=== PATIENT | male | born 1965 | race Caucasian/White ===

== ENCOUNTER → 2020-07-30 16:43 | Outpatient (BNVA) | payer OTHER, SELFPAY | PROVIDERS: Visit Provider Nurse Practitioner | DX: Z20.828 Contact with and (suspected) exposure to other viral communicable diseases (principal) | CPT/HCPCS: 87635 ==

== ENCOUNTER 2020-08-08 16:47 | Emergency (ER) | payer OTHER, SELFPAY ==
[2020-08-08 17:00] VITALS: BP 125/83; PULSE 112; RESP 19; TEMP 36.8; O2SAT 95; BMI 37.5
--- NOTE | 2020-08-08 17:00 | XRR_ITS ---
PROCEDURE INFORMATION: Exam: XR Chest, 1 View Exam date and time: 08/08/2020 5:41 PM Age: 55 years old Clinical indication: Cough; Additional info: Dyspnea/cough TECHNIQUE: Imaging protocol: XR of the chest Views: 1 view. COMPARISON: No relevant prior studies available. FINDINGS: Lungs: The lung bases are incompletely imaged. Pleural space: No pneumothorax. Heart/Mediastinum: Cardiomediastinal contours are unremarkable. Bones/joints: Bones are unremarkable. XR/XR chest 1V portable [id number] IMPRESSION: No acute findings.
--- NOTE | 2020-08-08 17:02 | W.ED.COVID ---
Documented by User: Rudolph Neil DO 08/09/20 10:14 HPI - COVID General: Chief Complaint: COVID symptoms Stated Complaint: covid +, weakness, nausea Time Seen by Provider: 08/08/20 16:49 History of Present Illness: HPI Narrative: 55-year-old male comes in complaining of fatigue weakness he is at approximately 9 to 10 days since onset of symptoms. He did test positive for Covid. He comes in today complaining of weakness with nausea and vomiting and cough generalized myalgias flulike symptoms. And diarrhea. He denies chest pain abdominal pain dysuria urgency or frequency MD complaint: known COVID positive Prior covid testing: yes, results known Prior testing date: 07/30/20 COVID 19 common symptoms: positive fever(s), chills, cough, non-productive cough, dyspnea, fatigue, body aches, headache(s), nasal congestion, nausea, vomiting and diarrhea COVID 19 other sytmptoms: negative chest pain or requiring oxygen Onset (ago): day(s) Severity: mild Treatment prior to arrival: acetaminophen and ibuprofen COVID Results: SARS-CoV-2 RNA (RT-PCR) Detected (NOT DETECTED) A 07/30/20 16:37 07/30/20 Nasal/Oral Coronavirus 2019 PCR Pending 07/30/20 16:43 07/30/20 Review of Systems Const: Reports: fever(s), chills, body aches and fatigue ENMT: Reports: nasal congestion Card: Denies: chest pain, edema, dyspnea on exertion or orthopnea Resp: Reports: dyspnea and non-productive cough GI: Reports: nausea, vomiting and diarrhea : Denies: flank pain, dysuria, urinary frequency or urinary urgency Skin/Breast: Denies: rash or pruritus Neuro: Reports: headache(s) PFSH ED PFSH: Social History Smoking and tobacco status: never smoked Alcohol intake: never Physical Exam Const: COMMON NORMALS: no acute distress GENERAL APPEARANCE: cooperative and comfortable ORIENTATION/CONSCIOUSNESS: Yes awake, Yes oriented to person, Yes oriented to place and Yes oriented to time HENMT: COMMON NORMALS: normocephalic, atraumatic and hearing grossly normal bilaterally HEAD & SCALP: normocephalic and atraumatic Eye: COMMON NORMALS: Equal, round and reactive pupils present, EOMs intact bilaterally, conjunctivae normal and no scleral icterus CONJUNCTIVA: Yes conjunctivae normal PUPIL: Yes Equal, round and reactive pupils present Neck/C-Spine: COMMON NORMALS: full ROM, no lymphadenopathy, supple and no JVD Resp: COMMON NORMALS: normal respiratory effort, No retractions, No use of accessory muscles and clear to auscultation bilaterally AUSCULTATION: clear to auscultation bilaterally Cardio: COMMON NORMALS: no JVD, regular rate, regular rhythm and No murmurs present (Cardio) RATE: regular rate RHYTHM: regular rhythm GI: COMMON NORMALS: Soft to palpation and No hepatosplenomegaly present AUSCULTATION: Yes normoactive bowel sounds PALPATION: Yes Soft to palpation, No Tenderness to palpation present (GI), No Guarding due to palpation present (GI) and Yes No hepatosplenomegaly present Extremity: COMMON NORMALS: normal to inspection, capillary refill normal, no clubbing, cyanosis or edema, no calf tenderness and no pedal edema Neuro: SENSORIUM/ORIENTATION: Yes oriented to person, Yes oriented to place and Yes oriented to time Skin: COMMON NORMALS: no rashes or lesions noted GENERAL SKIN EXAM: no rashes or lesions noted Course Vital Signs: Vital signs: Vital Signs Temperature 98.2 F 08/08/20 17:00 Pulse Rate 106 H 08/08/20 22:41 Respiratory Rate 18 08/08/20 22:41 Blood Pressure 112/78 08/08/20 22:41 Pulse Oximetry 94 08/08/20 22:41 MDM - COVID MDM Narrative: Medical decision making narrative: Care turned over to Dr. Newby at change of shift see his notes for final diagnosis and disposition Lab Data: Labs: Lab Results 08/08/20 08/08/20 08/08/20 Range/Units 17:30 17:30 18:40 WBC 5.9 (4.0-10.0) 10^3/ uL RBC 5.98 H (4.1-5.3) 10^6/u L Hgb 18.0 H (11.7-16.6) g/dL Hct 53.0 H (42.0-52.0) % MCV 88.6 (80-94) fL MCH 30.1 (28.0-34.0) pg MCHC 34.0 (30.0-36.0) g/dL RDW 12.6 (12.1-15.1) % Plt Count 167 (130-400) 10^3/c mm MPV 9.8 (7.4-10.4) fL Neut % (Auto) 79.5 % Lymph % (Auto) 13.1 % [place] % (Auto) 6.4 % Eos % (Auto) 0.3 % Baso % (Auto) 0.2 % Neut # (Auto) 4.72 (1.8-7.7) 10^3/u L Lymph # (Auto) 0.8 (0.8-4.8) 10^3/u L [place] # (Auto) 0.4 (0.2-0.9) 10^3/u L Eos # (Auto) 0.0 (0.0-0.8) 10^3/u L Baso # (Auto) 0.0 (0.0-0.1) 10^3/u L Nucleated RBC % (a uto) 0 % Nucleated RBCs # 0.0 /100WBC Sodium 133 L (136-145) mmol/L Potassium 4.1 (3.5-5.1) mmol/L Chloride 98 (98-107) mmol/L Carbon Dioxide 24 (22-29) mmol/L Anion Gap 15.1 (5-19) BUN 20 (6-20) mg/dL Creatinine 1.1 (0.7-1.2) mg/dL GFR Calculation 69.2 L (90-130) mL/min Glucose 156 H (65-115) mg/dL Calculated Osmolal ity 282 L (285-295) mOsm/k g Calcium 8.9 (8.5-10.5) mg/dL Total Bilirubin 1.4 H (0.15-1.2) mg/dL AST 45 H (0-40) U/L ALT 28 (0-41) U/L Alkaline Phosphata se 68 (40-130) IU/L Total Protein 7.2 (6.6-8.7) g/dL Albumin 3.5 (3.5-5.2) g/dL Globulin 3.7 (1.3-4.6) g/dL Urine Color Yellow (Yellow) Urine Appearance Hazy A (CLEAR) Urine pH 5 (5-7) Ur Specific Gravit y 1.015 (1.005-1.030) Urine Protein 1+ H (Negative) Urine Glucose (UA) Norm (Normal) Urine Ketones 1+ H (Negative) Urine Blood 3+ H (Negative) Urine Nitrate Negative (Negative) Urine Bilirubin 1+ H (Negative) Urine Urobilinogen Norm (Negative) mg/dL Ur Leukocyte Pina ase Trace H (Negative) Urine RBC Too numerous to c nt H (0-2) /hpf Urine WBC 5-10 H (0-5) /hpf Ur Squamous Epith Cells 0-4 H (0-5) /hpf Amorphous Sediment Not Reportable Urine Bacteria 2+ H (NONE) /hpf Hyaline Casts 5-10 H /lpf Fine Granular Cast s 0-4 H /lpf COVID Results: SARS-CoV-2 RNA (RT-PCR) Detected (NOT DETECTED) A 07/30/20 16:37 07/30/20 Nasal/Oral Coronavirus 2019 PCR Pending 07/30/20 16:43 07/30/20 Discharge Plan Discharge Patient Disposition: Home Clinical Impression: COVID-19 Condition: Stable Prescriptions: New dexamethasone 6 mg tablet 6 mg PO DAILY Qty: 5 RF: 0 Zofran 4 mg tablet 4 mg PO Q6H PRN (Reason: nausea and vomiting) Qty: 10 RF: 0 Discharge Orders: Discharge ED (Routine); Ordered 08/08/20 Ordered By: Den Newby Discharge Diet: Advance as tolerated Discharge Activity: Increase activity as tolerated Activity Restrictions/Additional Instructions: Return for increasing shortness of breath despite treatment, vomiting liquids or medications despite treatment, other concerning symptoms. Coding Level of Care Code ED It Technician for Chg Fwd Exam Comprehensive Documented by User: Den Newyb, 08/08/20 20:48 HPI - COVID General: Chief Complaint: COVID symptoms Stated Complaint: covid +, weakness, nausea Time Seen by Provider: 01/01/21 16:49 COVID Results: SARS-CoV-2 RNA (RT-PCR) Detected (NOT DETECTED) A 07/30/20 16:37 07/30/20 Nasal/Oral Coronavirus 2019 PCR Pending 07/30/20 16:43 07/30/20 [facility] ED PFSH: Social History Smoking and tobacco status: never smoked Alcohol intake: never Course Vital Signs: Vital signs: Vital Signs Temperature 98.2 F 08/08/20 17:00 Pulse Rate 106 H 08/08/20 22:41 Respiratory Rate 18 08/08/20 22:41 Blood Pressure 112/78 08/08/20 22:41 Pulse Oximetry 94 08/08/20 22:41 MDM - COVID MDM Narrative: Medical decision making narrative: 55-year-old male with a history of COVID-19 detection on 30 July. He is day 8 or 9 and a symptomatic illness. He was checked out to me by Dr. Neil at shift change. He presents with coughing, and some shortness of breath. His oxygen saturations been normal on room air. He is afebrile here. His laboratory appears stable, with the exception of a hemoglobin of 18, which is likely some dehydration. He also has a bilirubin of 1.4, with essentially normal other liver enzymes. He has received some IV fluid here, and is feeling better. His oxygen saturations did not drop. His heart rate is decreased. He is normotensive. He is 55 years old. He will be allowed home on a 5-day course of dexamethasone, and some Zofran. He knows to return for any return of symptoms. Lab Data: Labs: Lab Results 08/08/20 08/08/20 08/08/20 Range/Units 17:30 17:30 18:40 WBC 5.9 (4.0-10.0) 10^3/ uL RBC 5.98 H (4.1-5.3) 10^6/u L Hgb 18.0 H (11.7-16.6) g/dL Hct 53.0 H (42.0-52.0) % MCV 88.6 (80-94) fL MCH 30.1 (28.0-34.0) pg MCHC 34.0 (30.0-36.0) g/dL RDW 12.6 (12.1-15.1) % Plt Count 167 (130-400) 10^3/c mm MPV 9.8 (7.4-10.4) fL Neut % (Auto) 79.5 % Lymph % (Auto) 13.1 % [place] % (Auto) 6.4 % Eos % (Auto) 0.3 % Baso % (Auto) 0.2 % Neut # (Auto) 4.72 (1.8-7.7) 10^3/u L Lymph # (Auto) 0.8 (0.8-4.8) 10^3/u L [place] # (Auto) 0.4 (0.2-0.9) 10^3/u L Eos # (Auto) 0.0 (0.0-0.8) 10^3/u L Baso # (Auto) 0.0 (0.0-0.1) 10^3/u L Nucleated RBC % (a uto) 0 % Nucleated RBCs # 0.0 /100WBC Sodium 133 L (136-145) mmol/L Potassium 4.1 (3.5-5.1) mmol/L Chloride 98 (98-107) mmol/L Carbon Dioxide 24 (22-29) mmol/L Anion Gap 15.1 (5-19) BUN 20 (6-20) mg/dL Creatinine 1.1 (0.7-1.2) mg/dL GFR Calculation 69.2 L (90-130) mL/min Glucose 156 H (65-115) mg/dL Calculated Osmolal ity 282 L (285-295) mOsm/k g Calcium 8.9 (8.5-10.5) mg/dL Total Bilirubin 1.4 H (0.15-1.2) mg/dL AST 45 H (0-40) U/L ALT 28 (0-41) U/L Alkaline Phosphata se 68 (40-130) IU/L Total Protein 7.2 (6.6-8.7) g/dL Albumin 3.5 (3.5-5.2) g/dL Globulin 3.7 (1.3-4.6) g/dL Urine Color Yellow (Yellow) Urine Appearance Hazy A (CLEAR) Urine pH 5 (5-7) Ur Specific Gravit y 1.015 (1.005-1.030) Urine Protein 1+ H (Negative) Urine Glucose (UA) Norm (Normal) Urine Ketones 1+ H (Negative) Urine Blood 3+ H (Negative) Urine Nitrate Negative (Negative) Urine Bilirubin 1+ H (Negative) Urine Urobilinogen Norm (Negative) mg/dL Ur Leukocyte Pina ase Trace H (Negative) Urine RBC Too numerous to c nt H (0-2) /hpf Urine WBC 5-10 H (0-5) /hpf Ur Squamous Epith Cells 0-4 H (0-5) /hpf Amorphous Sediment Not Reportable Urine Bacteria 2+ H (NONE) /hpf Hyaline Casts 5-10 H /lpf Fine Granular Cast s 0-4 H /lpf COVID Results: SARS-CoV-2 RNA (RT-PCR) Detected (NOT DETECTED) A 07/30/20 16:37 07/30/20 Nasal/Oral Coronavirus 2019 PCR Pending 07/30/20 16:43 07/30/20 Discharge Plan Discharge Patient Disposition: Home Clinical Impression: COVID-19 Condition: Stable Prescriptions: New dexamethasone 6 mg tablet 6 mg PO DAILY Qty: 5 RF: 0 Zofran 4 mg tablet 4 mg PO Q6H PRN (Reason: nausea and vomiting) Qty: 10 RF: 0 Discharge Orders: Discharge ED (Routine); Ordered 08/08/20 Ordered By: Den Newby Discharge Diet: Advance as tolerated Discharge Activity: Increase activity as tolerated Activity Restrictions/Additional Instructions: Return for increasing shortness of breath despite treatment, vomiting liquids or medications despite treatment, other concerning symptoms. Coding Level of Care Code ED It Technician for Mamig Fwd Exam Comprehensive
[2020-08-08 17:08] VITALS: BP 111/82; PULSE 108; RESP 19; O2SAT 94; O2SAT 96
[2020-08-08] MEDS: promethazine 25 mg/mL SDV 1 mL IM (17:20)
[2020-08-08] MEDS: sodium chloride 0.9% 1,000 ML 999 ML IV ×2 (17:20→18:44)
[2020-08-08 17:39] LABS: Basophils % 0.2 %; Eosinophils % 0.3 %; Lymphocytes # 0.8 10^3/uL (0.8-4.8); Lymphocytes % 13.1 %; Mean Corpuscular Hemoglobin 30.1 pg (28.0-34.0); Mean Corpuscular Volume 88.6 fL (80-94); Mean Platelet Volume 9.8 fL (7.4-10.4); Monocytes # 0.4 10^3/uL (0.2-0.9); Monocytes % 6.4 %; Neutrophils # 4.72 10^3/uL (1.8-7.7); Neutrophils % 79.5 %; Nucleated Red Blood Cells % 0 %; Platelet Count 167 10^3/cmm (130-400); Red Blood Count 5.98 10^6/uL (4.1-5.3); Red Cell Distribution Width 12.6 % (12.1-15.1); White Blood Count 5.9 10^3/uL (4.0-10.0)
[2020-08-08 18:07] LABS: Alanine Aminotransferase 28 U/L (0-41); Albumin Level 3.5 g/dL (3.5-5.2); Alkaline Phosphatase 68 IU/L (40-130); Anion Gap 15.1 (5-19); Aspartate Amino Transferase 45 U/L (0-40); Blood Urea Nitrogen 20 mg/dL (6-20); Calcium 8.9 mg/dL (8.5-10.5); Carbon Dioxide 24 mmol/L (22-29); Chloride 98 mmol/L (98-107); Globulin 3.7 g/dL (1.3-4.6); Glomerular Filtration Rate 69.2 mL/min (90-130); Glucose 156 mg/dL (65-115); Osmolality Calculated 282 mOsm/kg (285-295); Potassium 4.1 mmol/L (3.5-5.1); Sodium 133 mmol/L (136-145); Total Bilirubin 1.4 mg/dL (0.15-1.2); Total Protein 7.2 g/dL (6.6-8.7)
[2020-08-08 18:08] VITALS: BP 113/72; PULSE 102; RESP 17; O2SAT 96
--- NOTE | 2020-08-08 19:09 | PC.NURSE ---
patient report recieved from JORDYN JAMISON and care transferred to JORDYN REYEZ
[2020-08-08 19:51] LABS: Add Urine Microscopic? YES; Bilirubin Urine 1+ (Negative); Blood Urine 3+ (Negative); Glucose Urine UA Norm (Normal); Ketones Urine 1+ (Negative); Leukocyte Esterase Urine Trace (Negative); Nitrate Urine Negative (Negative); Protein Urine 1+ (Negative); Specific Gravity, Urine 1.015 (1.005-1.030); Urine Appearance Hazy (CLEAR); Urine Color Yellow (Yellow); Urobilinogen Urine Norm (Negative); pH Urine 5 (5-7)
[2020-08-08 19:56] LABS: RBC Urine TOO NUMEROUS TO CNT /hpf (0-2); Squamous Epithelial Cell Urine 0-4 /hpf (0-5)
[2020-08-08 19:57] LABS: Add Urine Culture? Yes; Bacteria Urine 2+ /hpf; Fine Granular Casts Urine 0-4 /lpf
[2020-08-08] MEDS: dexamethasone 4 mg/mL INJ 6 MG IVP (20:18)
[2020-08-08 22:41] VITALS: BP 112/78; PULSE 106; RESP 18; O2SAT 94
== END 2020-08-08 22:31 | disposition home or self-care (01) ==
PROVIDERS: Family Medicine; Emergency Provider Emergency Medicine
DX: U07.1 COVID-19 (principal)
CPT/HCPCS: 12345; 71045; 80053; 81001; 85025; 87086; 96361; 96374; 99283; 99284; J1100; J2550; J7030